=== PATIENT | male | born 1965 | race Two or more races ===

== ENCOUNTER 2020-05-15 11:52 | Emergency (ER) | payer SELFPAY ==
[~2020-05-15] VITALS: Ht 185.4 cm; Wt 90.0 kg
[2020-05-15 12:05] VITALS: BP 158/86
[2020-05-15] MEDS ORDERED: BUPIVACAINE MPF 0.5% 30 ML VIAL. INJ ONE (13:00)
[2020-05-15] MEDS ORDERED: LIDOCAINE 1% PF 2 ML VIAL. INJ ONE (13:00)
[2020-05-15] MEDS ORDERED: DIPH,PERTUSS(ACELL),TET VAC/PF 0.5 ML SYRINGE. VAX IM ONE (13:00)
--- NOTE | 2020-05-15 13:09 | RAD ---
Left thumb 3 views 05/15/2020. Reason for exam: Laceration. There is density paralleling the ulnar side of the ungual tuft on the AP projection. It is uncertain if this is a small avulsed bone fragment or some density in the nail bed. The other views do not show clear-cut fracture or dislocation. No other abnormality is seen. IMPRESSION: Questionable avulsion along the margin of the ungual tuft. Electronically signed by: Sumit Lindquist Jr., MD (05/15/2020 1:05 PM) [id number]
--- NOTE | 2020-05-15 13:48 | PHYS DOC ---
Past Medical History Past Medical History: No Pertinent History Past Surgical History: No Surgical History Smoking Status: Never Smoker Alcohol Use: Occasionally Drug Use: None General Adult EDM: Chief Complaint: LACERATION/AVULSION HPI: HPI: Patient is a 55 year old male, accompanied by his , who presents to the emergency department with complaints of a laceration along medial edge of his left thumb that went through his fingernail. Patient states he was using a knife to cut carpet when he accidentally cut his left thumb. He is unsure when his last tetanus shot was. He currently rates his pain 8 out of 10 on the pain scale, the pain is worse with the area is touched, he denies any alleviating factors. He denies any decreased range of motion or loss of sensation following the injury. Review of Systems: Review of Systems: Complete review of systems is negative unless otherwise documented in the HPI. Heart Score: Risk Factors: Risk Factors: DM, Current or recent (<one month) smoker, HTN, HLP, family history of CAD, obesity. Risk Scores: Score 0 - 3: 2.5% MACE over next 6 weeks - Discharge Home Score 4 - 6: 20.3% MACE over next 6 weeks - Admit for Clinical Observation Score 7 - 10: 72.7% MACE over next 6 weeks - Early Invasive Strategies Current Medications: Current Medications Medications (Trade) Dose Ordered Sig/Rabia Start Time Stop Time Status Last Admin Dose Admin Bupivacaine HCl (Sensorcaine Mpf 0.5%) 30 ml 1X ONCE 05/15/20 13:00 05/15/20 13:01 DC Diphtheria/ Tetanus/Acell Pertussis (ADACEL TDap SYRINGE) 0.5 ml ONCE ONCE 05/15/20 13:00 05/15/20 13:01 DC Lidocaine HCl (Xylocaine-Mpf 1% 2ml Vial) 4 ml 1X ONCE 05/15/20 13:00 05/15/20 13:01 DC Allergies: Allergies: Allergies Coded Allergies Type Severity Reaction Last Updated Verified No Known Drug Allergies 01/26/16 No Physical Exam: PE: Constitutional: Well developed, well nourished, no acute distress, non-toxic appearance. [] HENT: Normocephalic, atraumatic, bilateral external ears normal, nose normal. [] Eyes: PERRLA, EOMI, conjunctiva normal, no discharge. [] Neck: Normal range of motion, no stridor. [] Cardiovascular:Heart rate regular rhythm Lungs & Thorax: Respirations even and unlabored, no retractions, no respiratory distress Skin: Warm, dry, no erythema, no rash; C-shaped laceration along the medial edge of the left thumb extending throught the fingernail to the tip of the thumb noted, bleeding controlled with pressure held by patient, no visble foreign body. Extremities: L thumb: Full extension and flexion, no decreased sensation, No cyanosis, ROM intact, no edema. [] Neurologic: Alert and oriented X 3, no focal deficits noted. [] Psychologic: Affect normal, judgement normal, mood normal. [] Current Patient Data: Vital Signs: Vital Signs Date Time Temp Pulse Resp B/P (MAP) Pulse Ox O2 Delivery O2 Flow Rate FiO2 05/15/20 12:05 98.8 81 16 158/86 (110) 96 Room Air 98.8 EKG: EKG: [] Radiology/Procedures: Radiology/Procedures: PROCEDURE: FINGER(S) LEFT Left thumb 3 views 05/15/2020. Reason for exam: Laceration. There is density paralleling the ulnar side of the ungual tuft on the AP projection. It is uncertain if this is a small avulsed bone fragment or some density in the nail bed. The other views do not show clear-cut fracture or dislocation. No other abnormality is seen. IMPRESSION: Questionable avulsion along the margin of the ungual tuft. Laceration Repair by me: Anesthesia: 1% lidocaine locally and 0.5% bupivacaine as distal block Location: L thumb Tendon/Joint/Nerves: No injury Foreign body: None detected after copious irrigation and exploration with chlorhexadine scrub and NS Technique: 11 Simple Interrupted Sutures with 4-0 Ethilon Complexity: No subcutaneous sutures/mucosal repair/edge excision Post Closure Length: 4 cm Patient's bleeding was easily controlled in the department and there is no indication of anemia. No evidence of compartment syndrome, neurologic injury, vascular injury, open joint, tendon laceration, or foreign body. Patient is appropriate for outpatient follow up. [] Course & Med Decision Making: Course & Med Decision Making Pertinent Labs and Imaging studies reviewed. (See chart for details) [] Dragon Disclaimer: Dragon Disclaimer: This electronic medical record was generated, in whole or in part, using a voice recognition dictation system. Departure Departure Impression: Primary Impression: Laceration of thumb without foreign body with damage to nail Qualified Codes: S61.112A - Laceration without foreign body of left thumb with damage to nail, initial encounter Additional Impressions: Avulsion fracture of left thumb with routine healing Qualified Codes: S62.502D - Fracture of unspecified phalanx of left thumb, subsequent encounter for fracture with routine healing Need for Tdap vaccination Disposition: HOME, SELF-CARE Condition: STABLE Referrals: NO PCP (PCP) Patient Instructions: Laceration Care, Adult, [id number], Thumb Fracture Additional Instructions: Fill the prescriptions and use as directed. Keep the area clean and dry. You may also take ibuprofen as needed for pain. Keep the dressing that was placed today on for 24 hours then change the dressing twice a day and apply antibiotic ointment to the area. Wear the aluminum finger splint that was placed until the sutures have been removed. follow-up with your primary care doctor, or return to the emergency room in 14 days to have the sutures removed, sooner if you develop signs of infection including: redness, warmth, drainage, or a fever. Scripts Hydrocodone Bit/Acetaminophen (HYDROCODONE-APAP 5-325 ) 1 Tab Tablet 1 TAB PO PRN Q6HRS PRN for PAIN for 3 Days, #12 TAB 0 Refills Prov: CONNOR NELSON APRN 05/15/20 Cephalexin (KEFLEX) 500 Mg Capsule 500 MG PO TID for 7 Days, #21 CAP 0 Refills Prov: CONNOR NELSON APRN 05/15/20 Justicifation of Admission Dx: Justifications for Admission: Justification of Admission Dx: N/A Splinting Splinting : Location: L thumb Pre-Made Type: metal (Aluminum finger splint) Pre-Proc Neuro Vasc Exam: normal Post-Proc Neuro Vasc Exam: normal, unchanged from pre-exam CONNOR NELSON APRN May 15, 2020 13:48
[2020-05-15] MEDS ORDERED: HYDR-2761 PO (14:41)
[2020-05-15] MEDS ORDERED: CEPH-264 PO (14:41)
== END 2020-05-15 15:13 | disposition home or self-care (01) ==
LOC: ER 11:52
DX: S61.112A Laceration without foreign body of left thumb with damage to nail, initial encounter (principal); W26.0XXA Contact with knife, initial encounter; Y93.89 Activity, other specified; Y92.89 Other specified places as the place of occurrence of the external cause; Y99.8 Other external cause status
CPT/HCPCS: 12002; 73140; 90471; 90715; 99283; J3490